=== PATIENT | male | born 1995 | race Caucasian/White ===

== ENCOUNTER 2017-05-30 22:38 | Emergency (ER) | payer SELFPAY ==
[~2017-05-30] VITALS: Ht 177.8 cm; Wt 92.0 kg
[2017-05-30 22:41] VITALS: BP 145/91
[2017-05-30] MEDS ORDERED: ibuprofen tablet 400 MG TABLET PO ONE (23:05)
[2017-05-30] MEDS ORDERED: ONDA4TAB9 PO (23:08)
[2017-05-30] MEDS ORDERED: HYDR-3965 PO (23:08)
[2017-05-30] MEDS ORDERED: ondansetron 4mg rapidly disintigrating tab PO ONE (23:20)
[2017-05-30] MEDS ORDERED: HYDROcodone/acetaminophen 10/325mg tab PO ONE (23:20)
== END 2017-05-30 23:47 | disposition home or self-care (01) ==
LOC: ER 22:39
DX: S93.402A Sprain of unspecified ligament of left ankle, initial encounter (principal); F17.200 Nicotine dependence, unspecified, uncomplicated; Z88.6 Allergy status to analgesic agent; W18.39XA Other fall on same level, initial encounter; Y93.89 Activity, other specified; Y92.89 Other specified places as the place of occurrence of the external cause; Y99.8 Other external cause status
CPT/HCPCS: 73610; 99284